=== PATIENT | male | born 1995 | race Caucasian/White ===

== ENCOUNTER 2017-06-30 10:11 | Emergency (ER) | payer OTHER ==
[~2017-06-30] VITALS: Ht 175.3 cm; Wt 88.5 kg
[2017-06-30] MEDS ORDERED: IBUPROFEN 800 MG TABLET. PO ONE (11:00)
[2017-06-30] MEDS ORDERED: HYDROcodone/APAP 5/325MG 1 TAB TABLET PO ONE (11:00)
--- NOTE | 2017-06-30 11:19 | PHYS DOC ---
Past Medical History Past Medical History: No Pertinent History Past Surgical History: Other Additional Past Surgical Histo: Tubes in ears as child,[place] teeth. Additional Information: 3-4 cigarettes/day. Alcohol Use: Occasionally Drug Use: None Adult General Chief Complaint Chief Complaint: LOWER BACK PAIN OR INJURY HPI HPI Patient is a 21 year old male presents to the emergency department stating that he is having lower back pain. Patient states that he was seen at [facility] last night was provided with Flexeril. He states that he did take a Flexeril this morning between 8 and 9:00 this morning. Patient states that he was trying to do his laundry when he turned and twisted his back. He states he developed increased pain and discomfort denies any loss of bowel or bladder. Patient denies any numbness or tingling down to his lower extremities. Patient states that he had to go to [facility] yesterday by ambulance because he was unable to stand and walk due to the pain and discomfort. Review of Systems Review of Systems Constitutional: Denies fever or chills [] Eyes: Denies change in visual acuity, redness, or eye pain [] HENT: Denies nasal congestion or sore throat [] Respiratory: Denies cough or shortness of breath [] Cardiovascular: No additional information not addressed in HPI [] GI: Denies abdominal pain, nausea, vomiting, bloody stools or diarrhea [] : Denies dysuria or hematuria [] Musculoskeletal: Complaining of low back pain denies any joint pain Integument: Denies rash or skin lesions [] Neurologic: Denies headache, focal weakness or sensory changes [] Endocrine: Denies polyuria or polydipsia [] Current Medications Current Medications Current Medications Medications (Trade) Dose Ordered Sig/Callie Start Time Stop Time Status Last Admin Dose Admin Acetaminophen/ Hydrocodone Bitart (Lortab 5/325) 2 tab 1X ONCE 06/30/17 11:00 06/30/17 11:02 DC 06/30/17 11:06 2 TAB Ibuprofen (Motrin) 800 mg 1X ONCE 06/30/17 11:00 06/30/17 11:02 DC 06/30/17 11:07 800 MG Allergies Allergies Allergies Coded Allergies Type Severity Reaction Last Updated Verified No Known Drug Allergies 06/30/17 No Physical Exam Physical Exam Constitutional: Well developed, well nourished, no acute distress, non-toxic appearance. [] HENT: Normocephalic, atraumatic, bilateral external ears normal, oropharynx moist, no oral exudates, nose normal. [] Eyes: PERRLA, EOMI, conjunctiva normal, no discharge. [] Neck: Normal range of motion, no tenderness, supple, no stridor. [] Cardiovascular:Heart rate regular rhythm, Lungs & Thorax: No respiratory distress noted Skin: Warm, dry, no erythema, no rash. [] Back: No thoracic spine tenderness, no crepitus no deformities noted. Patient did have tenderness along the lumbar spine area no crepitus or deformities noted. Patient had increased tenderness along the lower back area on the right. Neurologic: Alert and oriented X 3, normal motor function, normal sensory function, no focal deficits noted. Peripheral pulses 2+ cap refill brisk less than 2 seconds. Psychologic: Affect normal, judgement normal, mood normal. [] Current Patient Data Vital Signs Vital Signs Date Time Temp Pulse Resp B/P (MAP) Pulse Ox O2 Delivery O2 Flow Rate FiO2 06/30/17 12:21 57 18 111/56 (74) 99 Room Air 06/30/17 10:30 97.6 97.6 EKG EKG [] Radiology/Procedures Radiology/Procedures [][facility] [address] [place] [address] IMAGING REPORT Signed PATIENT: AZEB PELAYO ACCOUNT: [id number] : 1995 LOCATION: ER AGE: 21 SEX: M EXAM STATUS: REG ER ORD. PHYSICIAN: CHLOÉ DESIR LINER CHECKER REASON: lumbar spine pain x 2 days no relief with meds PROCEDURE: CT LUMBAR SPINE WO CONTRAST CT lumbar spine without contrast 06/30/2017 Clinical indication: Low back pain for 2 days. Comparison: None. Technique: Multiple CT images of the lumbar spine were obtained without contrast according to standard protocol. Coronal and sagittal reformations were obtained from the axial imaged data set. PQRS Compliance Statement: One or more of the following individualized dose reduction techniques were utilized for this examination: 1. Automated exposure control 2. Adjustment of the mA and/or kV according to patient size 3. Use of iterative reconstruction technique Findings: CT lumbar spine: There is transitional vertebral anatomy with 6 lumbar type vertebral bodies and partial sacralization of L6. There is normal lumbar alignment. Vertebral body heights and disc spaces are maintained. No acute lumbar spine fracture or subluxation. There is a shallow L5-L6 central disc protrusion resulting in effacement of the anterior thecal sac and mild spinal canal narrowing. Paraspinal soft tissues are within normal limits. Impression: 1. Transitional vertebral anatomy with shallow central disc protrusion at L5-L6 resulting in mild spinal canal narrowing. 2. No acute lumbar spine fracture or subluxation. DICTATED and SIGNED BY: TONO CADE MD DATE: 06/30/17 1223 CC: CHLOÉ DESIR APRN; NO PCP ~ Course & Med Decision Making Course & Med Decision Making Pertinent Labs and Imaging studies reviewed. (See chart for details) CT of the lumbar spine identified central disc protrusion at the L5 L6 resulting in mild spinal canal narrowing. Patient was provided with instructions regarding the CT results. Patient was encouraged to use the Flexeril as needed for muscle spasms. He was also instructed to use ibuprofen 800 mg every 8 hours. He was also encouraged to use hydrocodone as needed for severe pain and discomfort. Patient was instructed Flexeril and hydrocodone both will cause drowsiness do not take any be alert and oriented. Patient was also instructed to follow-up with a neurosurgeon in regards to act pain and discomfort. Patient will be discharged home in stable condition. Signs and symptoms to return back to emergency department has been provided. Patient does state his pain is a 5 out of 10 at this time. He states the pain increases with movement. [] Dragon Disclaimer Dragon Disclaimer This electronic medical record was generated, in whole or in part, using a voice recognition dictation system. Departure Departure Impression: Primary Impression: Lumbar spine pain Disposition: HOME, SELF-CARE Condition: STABLE Referrals: NO PCP (PCP) Patient Instructions: Back Pain, Adult, [id number] Additional Instructions: Activity as tolerated. Ice packs on 20 minutes off 20 minutes several times a day this will help with inflammation as well as pain. Ibuprofen 800 mg every 8 hours with food stop taking few develop upset stomach. Flexeril in which you have been prescribed at [facility] last night will cause drowsiness do not take any be alert and oriented. Hydrocodone ([place]) is a pain medication. This medication will cause drowsiness. Do not take any be alert and oriented. Follow-up with neurosurgeon within the next week. Return back to emergency prior signs and symptoms of become worse. Scripts Hydrocodone/Apap 5-325 (NORCO 5-325 TABLET) 1 Each Tablet 1-2 TAB PO PRN Q6HRS Y for PAIN, #30 TAB 0 Refills Prov: CHLOÉ DESIR APRN 06/30/17 Ibuprofen (IBUPROFEN) 800 Mg Tablet 800 MG PO PRN Q8HRS Y for INFLAMMATION, #90 TAB Prov: CHLOÉ DESIR APRN 06/30/17 CHLOÉ DESIR APRN Jun 30, 2017 11:19
[2017-06-30 12:21] VITALS: BP 111/56
--- NOTE | 2017-06-30 12:33 | RAD ---
CT lumbar spine without contrast 06/30/2017 Clinical indication: Low back pain for 2 days. Comparison: None. Technique: Multiple CT images of the lumbar spine were obtained without contrast according to standard protocol. Coronal and sagittal reformations were obtained from the axial imaged data set. RS Compliance Statement: One or more of the following individualized dose reduction techniques were utilized for this examination: 1. Automated exposure control 2. Adjustment of the mA and/or kV according to patient size 3. Use of iterative reconstruction technique Findings: CT lumbar spine: There is transitional vertebral anatomy with 6 lumbar type vertebral bodies and partial sacralization of L6. There is normal lumbar alignment. Vertebral body heights and disc spaces are maintained. No acute lumbar spine fracture or subluxation. There is a shallow L5-L6 central disc protrusion resulting in effacement of the anterior thecal sac and mild spinal canal narrowing. Paraspinal soft tissues are within normal limits. Impression: 1. Transitional vertebral anatomy with shallow central disc protrusion at L5-L6 resulting in mild spinal canal narrowing. 2. No acute lumbar spine fracture or subluxation.
[2017-06-30] MEDS ORDERED: IBUP-1060 PO (12:53)
[2017-06-30] MEDS ORDERED: HYDR-971 PO (12:53)
== END 2017-06-30 13:12 | disposition home or self-care (01) ==
LOC: ER 10:11
DX: M54.5 Low back pain (principal); F17.210 Nicotine dependence, cigarettes, uncomplicated; X50.9XXA Other and unspecified overexertion or strenuous movements or postures, initial encounter; Y93.89 Activity, other specified; Y99.8 Other external cause status; Y92.89 Other specified places as the place of occurrence of the external cause
CPT/HCPCS: 72131; 99284-25